=== PATIENT | male | born 1955 | race Caucasian/White ===

== ENCOUNTER → 2022-11-21 | Outpatient (CLI) | payer BC, SELFPAY ==
--- NOTE | 2022-11-21 10:25 | RAD_ITS ---
PROCEDURE: Fluoroscopic guided Hip Injection DATE: November 21, 2022 INDICATION: Male, 67 years old. Chronic right hip pain. PHYSICIAN: Alfred aCbral M.D. MEDICATIONS: 80 mg of Kenalog and 3 cc of 0.5% Marcaine. 2% lidocaine administered subcutaneously for local anesthesia. ACCESS SITE: Right hip. NEEDLE: 22-gauge spinal needle. FLUOROSCOPY TIME (if supplied): (0:31) minutes/seconds. One image was obtained. 6.86 mGy FINDINGS: The risks, benefits, and alternatives to the procedure were explained to the patient. The specific risks of bleeding, infection, and neurovascular injury were detailed and accepted. Witnessed informed consent was obtained. A 22-gauge spinal needle was positioned under radiographic fluoroscopic localization. Approximately 2 cc of Isovue-300 instilled for localization purposes. Medication was then injected. The patient tolerated the procedure well without any immediate complications. RAD/Inj/Asp Yifan Jt Should/Hip/Knee IMPRESSION: 1. Successful fluoroscopic guided hip injection. Electronically Signed: Alfred Cabral MD at 12:00 EDT ,
[2022-11-21] MEDS: Lidocaine 2% (5ml sdv) 5 ML VIAL.MPF INFILT (10:38)
[2022-11-21] MEDS: Triamcinolone Acetonide 40 MG/ML Vial 80 MG OPERA.SITE (10:40)
[2022-11-21] MEDS: Bupivacaine Mpf 0.5% 30 ML VIAL OPERA.SITE (10:40)
== END | disposition home or self-care (01) ==
PROVIDERS: PCP Family Medicine; Referring Provider Orthopaedic Surgery; Visit Provider Orthopaedic Surgery
DX: M16.11 Unilateral primary osteoarthritis, right hip (principal); G89.29 Other chronic pain
CPT/HCPCS: 20610; 77002; Q9967